=== PATIENT | male | born 1940 | race Caucasian/White ===

== ENCOUNTER 2016-07-05 08:12 | Outpatient (CLI) | payer MEDICARE | END 2016-07-05 08:13 | disposition home or self-care (01) | DX: E11.9 Type 2 diabetes mellitus without complications (principal); Z79.899 Other long term (current) drug therapy ==

== ENCOUNTER 2016-07-26 08:38 | Outpatient (CLI) | payer MEDICARE | END 2016-07-26 23:59 | DX: R94.5 Abnormal results of liver function studies (principal) ==

== ENCOUNTER 2016-09-13 08:54 | Outpatient (CLI) | payer MEDICARE | END 2016-09-13 08:55 | DX: R94.5 Abnormal results of liver function studies (principal) ==

== ENCOUNTER 2016-09-16 08:07 | Outpatient (CLI) | payer MEDICARE | END 2016-09-16 08:08 | disposition home or self-care (01) | DX: R94.5 Abnormal results of liver function studies (principal) ==

== ENCOUNTER 2017-02-01 09:08 | Outpatient (CLI) | payer MEDICARE ==
--- NOTE | 2017-02-01 15:27 | MRI Report ---
EXAM: MRI LUMBAR SPINE WITHOUT CONTRAST EXAM DATE: 02/01/2017 10:18 AM. CLINICAL HISTORY: 76-year-old with back pain radiating into the left hip and bilateral legs COMPARISON: None. TECHNIQUE: Multiplanar, multisequence T1-weighted and fluid-sensitive sequences of the lumbar spine f rom T12 to S1 without contrast. Other: None. FINDINGS: Spinal Cord: The conus terminates at T12-L1. No signal abnormality in the visualized spinal cord. Alignment: There is 11 degrees of levoconvex scoliotic curvature. There is minimal grade 1 retrolisth esis of L4 on L5. Bone Marrow: Five eln-svt-btzquqt lumbar vertebral bodies are assumed. Ftqh-ga-tvozufkn endplate dege nerative change, mild loss of disk, disk desiccation seen throughout the lumbar spine. No acute fract ure. No marrow replacing lesion. No definite abnormal marrow edema. Disk Levels/Facets: T12-L1: Unremarkable. L1-L2: Small posterior disk bulge, ligamentum flavum thickening, arthritic facet disease. Mild spinal canal stenosis. Mild bilateral neuroforaminal narrowing. L2-L3: Small posterior disk bulge, ligamentum flavum thickening, arthritic facet disease. Moderate to severe spinal canal stenosis. Moderate right and bhgd-nt-gkmmeedp left neural foraminal narrowing. L3-L4: Small posterior disk bulge, ligamentum flavum thickening, arthritic facet disease. Severe spin al canal stenosis. Tlqw-qz-xgtcalhy bilateral neural foraminal narrowing. L4-L5: Small central disk protrusion, ligament thickening, and arthritic facet disease. Moderate spin al canal stenosis. Moderate right and pxsv-cu-xcblxeng left neuroforaminal narrowing. L5-S1: Small posterior disk bulge eccentric to the right. Arthritic facet disease. Effacement of late ral recesses with potential contact of the traversing right S1 nerve root. Moderate right and minimal left neuroforaminal narrowing. Musculature: Normal. No edema or fatty atrophy. Other: The visualized pelvic cavity is unremarkable. IMPRESSION: 1. There is 11 degrees of levoconvex scoliotic curvature. 2. There is minimal grade 1 retrolisthesis of L4 on L5 3. Mild multilevel degenerative changes. L1-L2: Mild spinal canal stenosis. Mild bilateral neuroforaminal narrowing. L2-L3: Moderate to severe spinal canal stenosis. Moderate right and hwul-zo-hwptjjny left neural fora zayra narrowing. L3-L4: Severe spinal canal stenosis. Wdde-dr-owxwgpij bilateral neural foraminal narrowing. L4-L5: Moderate spinal canal stenosis. Moderate right and lyyt-gz-loxollef left neuroforaminal narrow ing. L5-S1: Effacement of lateral recesses with potential contact of the traversing right S1 nerve root. M oderate right and minimal left neuroforaminal narrowing. Comment: The following findings are so common in adults without low back pain that while we report th eir presence, they must be interpreted with caution and in the context of the clinical situation. (Re eladio Huertas et al, Spine 2001) Prevalence of findings in patients without low back pain: Disk degeneration (any evidence): 92% Disk desiccation/T2 signal loss: 83% Disk height loss: 56% Disk bulge: 64% Disk protrusion: 32% Annular tear/high intensity zone: 38% [facility] Referring Provider Line: [phone] SITE ID: [id number]
--- NOTE | 2017-02-01 15:37 | MRI Report ---
EXAM: MRI CERVICAL SPINE WITHOUT CONTRAST EXAM DATE: 02/01/2017 09:56 AM. CLINICAL HISTORY: 76 year-old with left third and fourth digit numbness and achiness COMPARISONS: None. TECHNIQUE: Multiplanar, multisequence T1-weighted and fluid-sensitive sequences of the cervical spine without contrast. Other: None. FINDINGS: Neurologic Structures: There is flattening of the ventral cervical cord seen C5-C6. No definite T2 si gnal hyperintensity seen within the cord. Alignment: Straining of the normal cervical lordosis. No definite spondylolisthesis. Bone Marrow: There is bshw-uq-mkgwnxdj degenerative change, Schmorl's node formation, mild to moderat e loss of disk, disk desiccation seen at the cervical spine. No acute fracture. No definite abnormal marrow edema. No marrow replacing lesion. Interspace Levels/Facets: C1-C2: Unremarkable. C2-C3: Tiny posterior disk osteophyte complex. Bilateral uncovertebral osteophyte and arthritic facet disease. No significant spinal canal stenosis. Mild right and moderate left neuroforaminal narrowing . C3-C4: Small posterior disk osteophyte complex. Bilateral uncovertebral osteophyte and arthritic face t disease. Mild spinal canal stenosis. Ojbk-db-hdxrvyzk right and moderate left neuroforaminal narrow ing. C4-C5: Small posterior disk osteophyte complex. Bilateral uncovertebral osteophyte and arthritic face t disease. Dlcr-nc-ohnzihnl spinal canal stenosis. Severe bilateral neuroforaminal narrowing. C5-C6: Small moderate posterior disk osteophyte complex. Bilateral uncovertebral osteophyte and arthr itic facet disease. Moderate central canal stenosis. Severe bilateral neuroforaminal narrowing. C6-C7: Small posterior disk osteophyte complex. Bilateral uncovertebral osteophyte and arthritic face t disease. Mild spinal canal stenosis. Moderate to severe right and severe left neural foraminal narr owing. C7-T1: Small central disk protrusion. Bilateral facet disease. Minimal spinal canal stenosis. Minimal bilateral neural foraminal narrowing. Musculature: Normal. No edema or fatty atrophy. Other: The paravertebral and prevertebral soft tissues are normal. IMPRESSION: 1. Straightening of the normal cervical lordosis. 2. There is flattening of the ventral cervical cord seen C5-C6. No definite T2 signal hyperintensity seen within the cord. 3. Updu-fx-dfyeszal multilevel degenerative changes. C2-C3: No significant spinal canal stenosis. Mild right and moderate left neuroforaminal narrowing. C3-C4: Mild spinal canal stenosis. Wfkr-xy-cxdezjum right and moderate left neuroforaminal narrowing. C4-C5: Oayc-cv-hmtgnzlm spinal canal stenosis. Severe bilateral neuroforaminal narrowing. C5-C6: Moderate spinal canal stenosis. Severe bilateral neuroforaminal narrowing. C6-C7: Mild spinal canal stenosis. Moderate to severe right and severe left neural foraminal narrowin g. [facility] Referring Provider Line: [phone] SITE ID: [id number]
== END 2017-02-01 09:09 | disposition home or self-care (01) ==
LOC: DI 09:08
PROVIDERS: ATTEND Internal Medicine
DX: M51.36 Other intervertebral disc degeneration, lumbar region (principal); M47.896 Other spondylosis, lumbar region; M43.16 Spondylolisthesis, lumbar region; M41.86 Other forms of scoliosis, lumbar region; M47.897 Other spondylosis, lumbosacral region; M50.31 Other cervical disc degeneration, high cervical region; M47.892 Other spondylosis, cervical region; M50.23 Other cervical disc displacement, cervicothoracic region
CPT/HCPCS: 72141; 72148

== ENCOUNTER 2017-10-17 08:00 | Outpatient (CLI) | payer MEDICARE ==
[2017-10-17 11:33] LABS: BASOPHILS # (AUTO) 0.1 10^3/uL (0.0-0.1); BASOPHILS % (AUTO) 1.5 %; EOSINOPHILS # (AUTO) 0.1 10^3/uL (0.0-0.7); EOSINOPHILS % (AUTO) 1.7 %; HGB - HEMOGLOBIN 14.6 g/dL (14.0-18.0); LYMPHOCYTES # (AUTO) 2.3 10^3/uL (1.5-3.5); LYMPHOCYTES % (AUTO) 29.4 %; MEAN CORPUSCULAR HEMOGLOBIN 29.4 pg (27.0-31.0); MEAN CORPUSCULAR HGB CONC 33.8 g/dL (32.0-36.0); MEAN CORPUSCULAR VOLUME 87.1 fL (80.0-94.0); MEAN PLATELET VOLUME 8.4 fL (7.4-11.4); MONOCYTES # (AUTO) 0.9 10^3/uL (0.0-1.0); NEUTROPHILS # (AUTO) 4.4 10^3/uL (1.5-6.6); NEUTROPHILS % (AUTO) 56.4 %; PLT - PLATELET COUNT 246 10^3/uL (130-450); RED BLOOD COUNT 4.95 10^6/uL (4.70-6.10); RED CELL DISTRIBUTION WIDTH 12.9 % (12.0-15.0); WHITE BLOOD COUNT 7.8 x10^3/uL (4.8-10.8)
[2017-10-17 11:46] LABS: ALBUMIN 4.5 g/dL (3.2-5.5); ALBUMIN/GLOBULIN RATIO 1.3 (1.0-2.2); ALKALINE PHOSPHATASE 56 IU/L (42-121); ALT ALANINE AMINOTRANSFERASE 54 IU/L (10-60); AST ASPARTATE AMINOTRANSFERASE 30 IU/L (10-42); BILIRUBIN,TOTAL 0.5 mg/dL (0.2-1.0); BUN - BLOOD UREA NITROGEN 21 mg/dL (6-20); CALCIUM 9.5 mg/dL (8.5-10.3); CARBON DIOXIDE - CO2 27 mmol/L (21-32); CHLORIDE 98 mmol/L (101-111); CHOL/HDL RATIO 4.5 (<5.0); CHOLESTEROL 167 mg/dL; CREATININE 1.3 mg/dL (0.6-1.2); GFR - MDRD 54 (>89); GLUCOSE 134 mg/dL (70-100); HB2 TOTAL 16.6 g/dL; HDL CHOLESTEROL 37 mg/dL; HEMOGLOBIN A1C 0.8 g/dL; HEMOGLOBIN A1C % 6.6 % (4.6-6.2); LDL CHOLESTEROL,CALCULATED 97 mg/dL; LDL/HDL RATIO 2.6 (<3.6); SODIUM 133 mmol/L (135-145); TOTAL PROTEIN 7.9 g/dL (6.7-8.2); VLDL CHOLESTEROL 33 mg/dL
== END 2017-10-17 08:01 | disposition home or self-care (01) ==
LOC: LAB.R 08:00
PROVIDERS: ATTEND Nurse Practitioner Primary Care
DX: R73.9 Hyperglycemia, unspecified (principal); R22.1 Localized swelling, mass and lump, neck; R59.9 Enlarged lymph nodes, unspecified; R94.5 Abnormal results of liver function studies; C61 Malignant neoplasm of prostate; E78.5 Hyperlipidemia, unspecified; I10 Essential (primary) hypertension
CPT/HCPCS: 80053; 80061; 83036; 83721; 85025

== ENCOUNTER 2017-10-22 12:32 | Outpatient (CLI) | payer MEDICARE ==
[2017-10-22] MEDS ORDERED: IOPAMIDOL-300 100 ML VIAL ONE (13:01)
[2017-10-22] MEDS ORDERED: IOPAMIDOL-300 100 ML VIAL IVP ONE (13:02)
--- NOTE | 2017-10-22 14:08 | CT Report ---
CT NECK WITH CONTRAST: 10/22/2017 CLINICAL INDICATION: Palpable abnormality left neck. TECHNIQUE: Axial CT images of the neck were obtained with 80 mL Isovue 300 intravenously. COMPARISON: No previous CT is available for comparison. FINDINGS: The vascular structures enhance normally. There is no evidence of cervical lymphadenopathy. No discrete mass or cyst is identified at the site of palpable abnormality identified by the marker. The salivary glands and thyroid gland appear unremarkable. Osseous structures demonstrate extensive degenerative changes. Limited evaluation of the lung apices is unremarkable. IMPRESSION: NO EVIDENCE OF MASS OR CYST AT THE SITE OF PALPABLE ABNORMALITY IDENTIFIED BY THE PATIENT. NO CERVICAL ADENOPATHY. CT DOSE REDUCTION STATEMENT In accordance with CT protocol optimization, one or more of the following dose reduction techniques were utilized for this exam: automated exposure control, adjustment of mA and/or KV based on patient size, or use of iterative reconstructive technique. TD: 10/22/2017 13:47
== END 2017-10-22 12:33 | disposition home or self-care (01) ==
LOC: DI 12:32
PROVIDERS: ATTEND Nurse Practitioner Primary Care
DX: R22.1 Localized swelling, mass and lump, neck (principal); R59.9 Enlarged lymph nodes, unspecified
CPT/HCPCS: 70491; Q9967

== ENCOUNTER 2018-07-08 11:16 | Outpatient (CLI) | payer MEDICARE | END 2018-07-08 11:17 | disposition home or self-care (01) | LOC: SC 11:16 | PROVIDERS: ATTEND Internal Medicine Pulmonary Disease | DX: G47.33 Obstructive sleep apnea (adult) (pediatric) (principal); E66.9 Obesity, unspecified; Z68.31 Body mass index [BMI] 31.0-31.9, adult | CPT/HCPCS: 99203; G0463; 99212 ==

== ENCOUNTER 2018-08-03 19:30 | Outpatient (CLI) | payer MEDICARE | END 2018-08-03 23:59 | disposition home or self-care (01) | LOC: SC 19:30 | PROVIDERS: ATTEND Internal Medicine Pulmonary Disease | DX: G47.33 Obstructive sleep apnea (adult) (pediatric) (principal) | CPT/HCPCS: G0399 ×2; 95806 ==

== ENCOUNTER 2018-08-27 09:39 | Outpatient (CLI) | payer MEDICARE | END 2018-08-27 09:40 | disposition home or self-care (01) | LOC: SC 09:39 | PROVIDERS: ATTEND Internal Medicine Pulmonary Disease | DX: G47.33 Obstructive sleep apnea (adult) (pediatric) (principal) | CPT/HCPCS: 99213; G0463; 99212 ==

== ENCOUNTER 2020-03-12 14:53 | Outpatient (CLI) | payer MEDICARE ==
[2020-03-12 15:50] LABS: CREATININE 1.3 mg/dL (0.6-1.2)
[2020-03-12] MEDS ORDERED: GADOBUTROL 10 MMOL/10 ML VIAL ONE (16:55)
[2020-03-12] MEDS ORDERED: GADOBUTROL 10 MMOL/10 ML VIAL IVP ONE (17:25)
--- NOTE | 2020-03-12 17:25 | MRI Report ---
PROCEDURE: Cervical Spine W/O INDICATIONS: CERVICAL DISC DISEASE, BACK PAIN W/RADICULOPATHY TECHNIQUE: Noncontrast sagittal T1 spin echo and T2 fast spin echo, sagittal STIR, foraminal oblique sagittal T2 fast spin echo, and axial gradient echo or T2 fast spin echo through the cervical spine. COMPARISON: 02/01/2017. Correlation is also made with CT neck images, 03/02/2017 FINDINGS: Image quality: Motion artifact is noted. Alignment and Curvature: There is normal bony alignment. Bone Marrow: Marrow demonstrates normal overall signal. Spinal Cord: Visualized spinal cord has normal size and signal. No cerebellar tonsillar herniation. Paraspinous Soft Tissues: No paravertebral masses. Prevertebral soft tissues are normal in thicknes s. C2-C3: The disc height is well-preserved. There is loss of disc signal seen. Mild disc osteophyte c omplex is seen. Moderate facet hypertrophy is seen. Moderate bilateral neural foraminal narrowing is seen. Mild central canal narrowing is seen. C3-C4: The disc height is well-preserved. There is loss of disc signal seen. Moderate disc osteophy te complex is seen, which is eccentric to the right. Mild facet hypertrophy is seen. There is moder ate to severe bilateral neuroforaminal narrowing seen. Moderate central canal narrowing is seen. C4-C5: There is at least moderate loss of disc height and disc signal seen. Moderate disc osteophyte complex is seen at this level, with a central disc osteophyte protrusion seen. Mild disc osteophyte complex is seen. There is moderate to severe bilateral neuroforaminal narrowing seen. Moderate to severe central canal narrowing is seen. Associated mass effect is seen upon the ventral spinal cord. C5-C6: Mild loss of disc height and disc signal are seen. Moderate disc osteophyte complex is seen. There is a central disc osteophyte extrusion seen. There is mild right-sided and moderate left-side d facet hypertrophy seen. There is moderate to severe bilateral neuroforaminal narrowing seen. At miki st moderate central canal narrowing is seen, with associated mass effect upon the ventral spinal cord . C6-C7: Moderate loss of disc height and signal are seen. Moderate disc osteophyte complex is seen, w hich is eccentric to the right side. There is moderate right-sided and moderate to prominent left-manuel ed facet hypertrophy seen. Moderate to severe bilateral neuroforaminal narrowing is seen. At least mo derate central canal narrowing is seen. Associated mass effect is seen upon the ventral spinal cord. C7-T1: The disc height is well-preserved. There is loss of disc signal seen. There is moderate to se michelle right-sided and moderate left-sided neuroforaminal narrowing seen. Mild to moderate central katherine l narrowing is seen. IMPRESSION: Multiple levels of relatively prominent degenerative change are seen, including several levels of mod erate to severe neuroforaminal narrowing. Compared to 2017, these degenerative changes are overall mildly progressed. Reviewed by: Jimmy Beltrán MD on 03/12/2020 4:24 PM [facility] Approved by: Jimmy Beltrán MD on 03/12/2020 4:24 PM [facility] Station ID: [id number]
--- NOTE | 2020-03-15 11:30 | MRI Report ---
PROCEDURE: Lumbar Spine W/WO INDICATIONS: CERVICAL DISC DISEASE, BACK PAIN W/RADICULOPATHY CONTRAST: IV CONTRAST: Gadavist ml: 10 TECHNIQUE: Noncontrast sagittal T1 spin echo and T2 fast spin echo, sagittal STIR, axial T1 and T2 fast spin ech o through the lumbar spine. In cases with scoliosis, additional coronal T2 fast spin echo may be per formed. After the administration of contrast, sagittal and axial T1 spin echo with fat saturation th rough the lumbar spine. COMPARISON: Lumbar MRI, 02/01/2017 FINDINGS: Image quality: Excellent. Alignment and curvature: Mild dextroconvex scoliotic curvature is seen. Minimal retrolisthesis is ag ain seen at the L4-L5 level. Marrow: Marrow is of normal overall signal. No acute vertebral body compression fractures. No susp icious marrow enhancement. Spinal cord: Conus medullaris terminates at the T12-L1 level. Visualized spinal cord demonstrates n ormal signal, without suspicious enhancement. Paraspinous soft tissues: No paravertebral masses or abnormal enhancement. Transitional lumbar anatomy is noted, with partial lumbarization of L5 on the left. This is best seen on series 701 images 6 through 8. T12-L1: The disc height is well-preserved. There is loss of disc signal seen. Mild to moderate bilat eral neuroforaminal narrowing is seen. No significant central canal narrowing is seen. Minimal progre ssion compared to 2017. L1-L2: The disc height is well-preserved. There is loss of disc signal seen. Likely mild to modera te disc bulge is seen. Moderate facet hypertrophy is seen. Moderate lateral neuroforaminal narrowing is seen, right worse than left. Minimal central canal narrowing is seen. These imaging findings are similar to the images of the prior examination. L2-L3: The disc height is well-preserved. There is loss of disc signal seen. Moderate disc bulge i s seen, with a central disc protrusion. Moderate facet hypertrophy is seen. There is moderate right -sided and at least moderate left-sided neuroforaminal narrowing seen. Moderate to severe central can al narrowing is seen, as on series 701 image 26. These degenerative changes have progressed when comp ared to the prior examination. L3-L4: The disc height is well-preserved. There is loss of disc signal seen. Moderate disc bulge is seen, with a mild central disc protrusion. Prior right hemilaminectomy changes are seen. Moderate to prominent facet hypertrophy can be seen at this level. There is at least moderate right-sided and mo derate to severe left-sided neuroforaminal narrowing seen. There is a degree of compression seen upon the exiting left L3 nerve root. Mild central canal narrowing is seen. The degree of central canal narrowing at this level is clearly improved compared to the 2017 MRI examination. L4-L5: Moderate loss of disc height and signal are seen. Note is made of an annular fissure posteri shadia. At least moderate disc bulge is seen, which is eccentric to the right. There is a mild central disc protrusion. At least moderate facet hypertrophy is seen. Associated hypertrophy of the ligament um flavum can be seen. There is moderate to severe bilateral neuroforaminal narrowing seen, left wor se than right. Compression is seen upon the exiting nerve roots. Moderate to severe central canal na rrowing is seen at this level. These degenerative changes have progressed when compared to the prior examination. L5-S1: The disc height is well-preserved. Mild loss of disc signal is seen. Mild disc bulge is se en. Moderate facet hypertrophy is seen. There is moderate right-sided and minimal left-sided neur oforaminal narrowing seen. Mild central canal narrowing is seen. These imaging findings are simila r to the images of the prior examination. IMPRESSION: Since the prior 2017 MRI examination, there has been right hemilaminectomy change at L3-L4, with impr ovement in the degree of central canal narrowing and right neural foraminal narrowing at this level. Interval progression of degenerative change at T12-L1, L2-L3, and L4-L5 compared to 2017. Transitional lumbar anatomy is noted, with partial sacralization of L5 on the left. Reviewed by: Jimmy Beltrán MD on 03/15/2020 10:29 AM [place] Approved by: Jimmy Beltrán MD on 03/15/2020 10:29 AM [facility] Station ID: [id number]
== END 2020-03-12 14:54 | disposition home or self-care (01) ==
LOC: LAB 14:53 → DI 14:54
PROVIDERS: ATTEND Family Medicine
DX: M51.16 Intervertebral disc disorders with radiculopathy, lumbar region (principal); M48.061 Spinal stenosis, lumbar region without neurogenic claudication; M47.812 Spondylosis without myelopathy or radiculopathy, cervical region
CPT/HCPCS: 36415; 72141; 72158; 82565; 84520; A9585

== ENCOUNTER 2020-12-01 08:00 | Outpatient (CLI) | payer MEDICARE ==
[2020-12-01 18:04] LABS: BASOPHILS # (AUTO) 0.1 10^3/uL (0.0-0.1); BASOPHILS % (AUTO) 1.6 %; EOSINOPHILS # (AUTO) 0.1 10^3/uL (0.0-0.7); EOSINOPHILS % (AUTO) 1.4 %; HCT - HEMATOCRIT 44.9 % (42.0-52.0); HGB - HEMOGLOBIN 14.5 g/dL (14.0-18.0); LYMPHOCYTES % (AUTO) 29.1 %; MEAN CORPUSCULAR HEMOGLOBIN 29.4 pg (27.0-31.0); MEAN CORPUSCULAR HGB CONC 32.3 g/dL (32.0-36.0); MEAN CORPUSCULAR VOLUME 91.1 fL (80.0-94.0); MEAN PLATELET VOLUME 10.6 fL (7.4-11.4); MONOCYTES # (AUTO) 0.7 10^3/uL (0.0-1.0); MONOCYTES % (AUTO) 10.3 %; NEUTROPHILS % (AUTO) 57.5 %; PLT - PLATELET COUNT 248 10^3/uL (130-450); RED BLOOD COUNT 4.93 10^6/uL (4.70-6.10); RED CELL DISTRIBUTION WIDTH 13.3 % (12.0-15.0); WHITE BLOOD COUNT 6.9 x10^3/uL (4.8-10.8)
[2020-12-01 18:17] LABS: CREATININE,URINE 39.4 mg/dL; MICROALBUM/CREATININE RATIO,UR 7.6 ug/mg (<30.0); MICROALBUMIN,URINE 0.3 mg/dL (0-300.0)
[2020-12-01 18:54] LABS: ALBUMIN 5.2 g/dL (3.2-5.5); ALBUMIN/GLOBULIN RATIO 1.8 (1.0-2.2); ALKALINE PHOSPHATASE 51 IU/L (42-121); ALT ALANINE AMINOTRANSFERASE 52 IU/L (10-60); AST ASPARTATE AMINOTRANSFERASE 30 IU/L (10-42); BILIRUBIN,TOTAL 1.2 mg/dL (0.2-1.0); BUN - BLOOD UREA NITROGEN 16 mg/dL (6-20); CARBON DIOXIDE - CO2 27 mmol/L (21-32); CHLORIDE 102 mmol/L (101-111); CHOL/HDL RATIO 5.6 (<5.0); CHOLESTEROL 184 mg/dL; CREATININE 1.1 mg/dL (0.6-1.2); GFR - MDRD 65 (>89); GLUCOSE 115 mg/dL (70-100); HDL CHOLESTEROL 33 mg/dL; LDL CHOLESTEROL,CALCULATED 116 mg/dL; LDL/HDL RATIO 3.5 (<3.6); POTASSIUM 4.5 mmol/L (3.5-5.0); SODIUM 139 mmol/L (135-145); TOTAL PROTEIN 8.1 g/dL (6.7-8.2); TRIGLYCERIDES 175 mg/dL; VLDL CHOLESTEROL 35 mg/dL
[2020-12-01 19:02] LABS: THYROID STIMULATING HORMONE 2.08 uIU/mL (0.34-5.60)
[2020-12-01 20:59] LABS: ESTIMATED AVERAGE GLUCOSE 131 mg/dL (70-100); HEMOGLOBIN A1c% 6.2 % (4.27-6.07)
== END 2020-12-01 23:59 | disposition home or self-care (01) ==
LOC: LAB.WCP 08:00
PROVIDERS: ATTEND Family Medicine
DX: E11.9 Type 2 diabetes mellitus without complications (principal); K21.9 Gastro-esophageal reflux disease without esophagitis; G47.33 Obstructive sleep apnea (adult) (pediatric); E78.5 Hyperlipidemia, unspecified; I10 Essential (primary) hypertension; M51.16 Intervertebral disc disorders with radiculopathy, lumbar region
CPT/HCPCS: 36415; 80053; 80061; 82043; 82570; 83036; 83721; 84443; 85025

== ENCOUNTER 2022-02-16 10:33 | Outpatient (CLI) | payer MEDICARE ==
[2022-02-16 18:03] LABS: CALCIUM 9.6 mg/dL (8.5-10.3); CREATININE 1.2 mg/dL (0.6-1.2); POTASSIUM 4.4 mmol/L (3.5-5.0)
[2022-02-16 18:08] LABS: CREATININE,URINE 94.2 mg/dL; MICROALBUM/CREATININE RATIO,UR 6.4 ug/mg (<30.0); MICROALBUMIN,URINE 0.6 mg/dL (0-300.0)
[2022-02-16 20:13] LABS: ESTIMATED AVERAGE GLUCOSE 123 mg/dL (70-100); HEMOGLOBIN A1c% 5.9 % (4.27-6.07)
== END 2022-02-16 10:34 | disposition home or self-care (01) ==
LOC: LAB.N 10:33
PROVIDERS: ATTEND Family Medicine
DX: E11.9 Type 2 diabetes mellitus without complications (principal)
CPT/HCPCS: 36415; 80048; 82043; 82570; 83036

== ENCOUNTER 2022-09-07 10:05 | Outpatient (CLI) | payer MEDICARE ==
[2022-09-07 12:13] LABS: BASOPHILS # (AUTO) 0.1 10^3/uL (0.0-0.1); BASOPHILS % (AUTO) 1.7 %; EOSINOPHILS # (AUTO) 0.1 10^3/uL (0.0-0.7); EOSINOPHILS % (AUTO) 1.5 %; HCT - HEMATOCRIT 42.1 % (42.0-52.0); LYMPHOCYTES # (AUTO) 2.2 10^3/uL (1.5-3.5); LYMPHOCYTES % (AUTO) 31.5 %; MEAN CORPUSCULAR HEMOGLOBIN 29.9 pg (27.0-31.0); MEAN CORPUSCULAR HGB CONC 33.3 g/dL (32.0-36.0); MEAN PLATELET VOLUME 10.8 fL (7.4-11.4); MONOCYTES # (AUTO) 0.7 10^3/uL (0.0-1.0); MONOCYTES % (AUTO) 9.9 %; NEUTROPHILS # (AUTO) 3.9 10^3/uL (1.5-6.6); NEUTROPHILS % (AUTO) 55.3 %; PLT - PLATELET COUNT 246 10^3/uL (130-450); RED BLOOD COUNT 4.68 10^6/uL (4.70-6.10); RED CELL DISTRIBUTION WIDTH 13.3 % (12.0-15.0); WHITE BLOOD COUNT 7.1 x10^3/uL (4.8-10.8)
[2022-09-07 12:38] LABS: THYROID STIMULATING HORMONE 1.77 uIU/mL (0.34-5.60)
[2022-09-07 12:44] LABS: ESTIMATED AVERAGE GLUCOSE 126 mg/dL (70-100)
[2022-09-07 12:50] LABS: ALBUMIN 4.7 g/dL (3.2-5.5); ALBUMIN/GLOBULIN RATIO 1.8 (1.0-2.2); ALKALINE PHOSPHATASE 46 IU/L (42-121); ALT ALANINE AMINOTRANSFERASE 36 IU/L (10-60); AST ASPARTATE AMINOTRANSFERASE 28 IU/L (10-42); BILIRUBIN,TOTAL 0.7 mg/dL (0.2-1.0); BUN - BLOOD UREA NITROGEN 14 mg/dL (6-20); CALCIUM 9.4 mg/dL (8.5-10.3); CARBON DIOXIDE - CO2 28 mmol/L (21-32); CHLORIDE 106 mmol/L (101-111); CHOL/HDL RATIO 4.8 (<5.0); CHOLESTEROL 150 mg/dL; CREATININE 1.1 mg/dL (0.6-1.2); GFR - MDRD 65 (>89); GLUCOSE 118 mg/dL (70-100); HDL CHOLESTEROL 31 mg/dL; LDL CHOLESTEROL,CALCULATED 81 mg/dL; LDL/HDL RATIO 2.6 (<3.6); POTASSIUM 4.4 mmol/L (3.5-5.0); SODIUM 138 mmol/L (135-145); TOTAL PROTEIN 7.3 g/dL (6.7-8.2); TRIGLYCERIDES 190 mg/dL; VLDL CHOLESTEROL 38 mg/dL
[2022-09-07 18:19] LABS: CREATININE,URINE 37.1 mg/dL; MICROALBUM/CREATININE RATIO,UR 13.5 ug/mg (<30.0); MICROALBUMIN,URINE 0.5 mg/dL (0-300.0)
== END 2022-09-07 10:06 | disposition home or self-care (01) ==
LOC: LAB.N 10:05
PROVIDERS: ATTEND Family Medicine
DX: I10 Essential (primary) hypertension (principal); M96.1 Postlaminectomy syndrome, not elsewhere classified; M54.16 Radiculopathy, lumbar region; K21.9 Gastro-esophageal reflux disease without esophagitis; R01.1 Cardiac murmur, unspecified
CPT/HCPCS: 36415; 80053; 80061; 82043; 82570; 83036; 83721; 84443; 85025

== ENCOUNTER 2023-03-09 08:48 | Outpatient (CLI) | payer MEDICARE ==
[2023-03-09 12:59] LABS: ESTIMATED AVERAGE GLUCOSE 126 mg/dL (70-100)
[2023-03-09 13:01] LABS: CALCIUM 9.8 mg/dL (8.5-10.3); CREATININE 1.2 mg/dL (0.6-1.3); POTASSIUM 3.9 mmol/L (3.5-4.5)
[2023-03-09 13:11] LABS: CREATININE,URINE 136.5 mg/dL; MICROALBUM/CREATININE RATIO,UR 16.1 ug/mg (<30.0); MICROALBUMIN,URINE 2.2 mg/dL
== END 2023-03-09 08:49 | disposition home or self-care (01) ==
LOC: LAB.N 08:48
PROVIDERS: ATTEND Family Medicine
DX: E11.9 Type 2 diabetes mellitus without complications (principal)
CPT/HCPCS: 36415; 80048; 82043; 82570; 83036

== ENCOUNTER 2023-09-13 09:09 | Outpatient (CLI) | payer MEDICARE ==
[2023-09-13 12:33] LABS: BASOPHILS # (AUTO) 0.1 10^3/uL (0.0-0.1); BASOPHILS % (AUTO) 1.6 %; EOSINOPHILS # (AUTO) 0.1 10^3/uL (0.0-0.7); EOSINOPHILS % (AUTO) 1.6 %; HCT - HEMATOCRIT 42.6 % (42.0-52.0); HGB - HEMOGLOBIN 14.1 g/dL (14.0-18.0); LYMPHOCYTES # (AUTO) 2.2 10^3/uL (1.5-3.5); MEAN CORPUSCULAR HEMOGLOBIN 29.7 pg (27.0-31.0); MEAN CORPUSCULAR HGB CONC 33.1 g/dL (32.0-36.0); MEAN CORPUSCULAR VOLUME 89.9 fL (80.0-94.0); MONOCYTES # (AUTO) 0.6 10^3/uL (0.0-1.0); MONOCYTES % (AUTO) 9.6 %; NEUTROPHILS # (AUTO) 3.6 10^3/uL (1.5-6.6); NEUTROPHILS % (AUTO) 54.1 %; PLT - PLATELET COUNT 264 10^3/uL (130-450); RED BLOOD COUNT 4.74 10^6/uL (4.70-6.10); RED CELL DISTRIBUTION WIDTH 13.2 % (12.0-15.0); WHITE BLOOD COUNT 6.7 x10^3/uL (4.8-10.8)
[2023-09-13 12:39] LABS: ESTIMATED AVERAGE GLUCOSE 131 mg/dL (70-100); HEMOGLOBIN A1c% 6.2 % (4.27-6.07)
[2023-09-13 12:58] LABS: ALBUMIN 4.8 g/dL (3.2-5.5); ALBUMIN/GLOBULIN RATIO 1.7 (1.0-2.2); ALKALINE PHOSPHATASE 52 IU/L (42-121); ALT ALANINE AMINOTRANSFERASE 43 IU/L (10-60); AST ASPARTATE AMINOTRANSFERASE 24 IU/L (10-42); BILIRUBIN,TOTAL 0.6 mg/dL (0.2-1.0); BUN - BLOOD UREA NITROGEN 17 mg/dL (6-20); CARBON DIOXIDE - CO2 25 mmol/L (21-32); CHLORIDE 103 mmol/L (101-111); CHOLESTEROL 159 mg/dL; CREATININE 1.3 mg/dL (0.6-1.3); GFR - MDRD 53 (>89); GLUCOSE 131 mg/dL (74-104); HDL CHOLESTEROL 32 mg/dL; LDL CHOLESTEROL,CALCULATED 88 mg/dL; LDL/HDL RATIO 2.8 (<3.6); POTASSIUM 4.1 mmol/L (3.5-4.5); SODIUM 136 mmol/L (135-145); TOTAL PROTEIN 7.6 g/dL (6.4-8.9); TRIGLYCERIDES 196 mg/dL (48-352); VLDL CHOLESTEROL 39 mg/dL
[2023-09-13 13:01] LABS: THYROID STIMULATING HORMONE 1.99 uIU/mL (0.34-5.60)
== END 2023-09-13 09:10 | disposition home or self-care (01) ==
LOC: LAB.N 09:09
PROVIDERS: ATTEND Family Medicine
DX: E11.9 Type 2 diabetes mellitus without complications (principal); C61 Malignant neoplasm of prostate; E78.5 Hyperlipidemia, unspecified; I10 Essential (primary) hypertension
CPT/HCPCS: 36415; 80053; 80061; 83036; 83721; 84153; 84443; 85025

== ENCOUNTER 2023-11-11 11:59 | Outpatient (CLI) | payer MEDICARE ==
--- NOTE | 2023-11-11 14:52 | XRAY Report ---
PROCEDURE: Knee 4+V LT INDICATIONS: KNEE PAIN TECHNIQUE: 4 views of the knee(s) were acquired. COMPARISON: None. FINDINGS: Bones: No fractures or dislocations. No suspicious bony lesions. Tricompartmental joint space joyce rowing with associated osteophytosis. Subchondral cystic change with sclerosis of the medial tibiofem oral compartment. Soft tissues: Small knee joint effusion. No suspicious soft tissue calcifications or masses. IMPRESSION: Moderate to severe tricompartmental osteoarthritis. Kellgren-Ernesto scale of osteoarthritis: 2-3. Reviewed by: Hans Zhang MD on 11/11/2023 2:51 PM PDT Approved by: Hans Zhang MD on 11/11/2023 2:51 PM PDT Station ID: [id number]
== END 2023-11-11 12:00 | disposition home or self-care (01) ==
LOC: DI 11:59
PROVIDERS: ATTEND Physician Assistant Surgical
DX: M17.12 Unilateral primary osteoarthritis, left knee (principal)